=== PATIENT | male | born 1950 | race Native Hawaiian/Other Pacific Islander ===

== ENCOUNTER 2018-01-18 11:53 | Outpatient (CLI) | payer OTHER ==
[~2018-01-18 11:53] MED LIST: METO25TA4 PO; PRAVACHOL80 MG PO
== END 2018-01-18 21:59 | disposition home or self-care (01) ==
LOC: RAD 11:53
DX: Z12.89 Encounter for screening for malignant neoplasm of other sites (principal)

== ENCOUNTER 2018-01-24 09:02 | Outpatient (CLI) | payer OTHER | END 2018-01-24 18:17 | disposition home or self-care (01) | LOC: US 09:02 | DX: R59.0 Localized enlarged lymph nodes (principal) ==

== ENCOUNTER 2018-03-28 08:19 | Emergency (ER) | payer OTHER ==
[~2018-03-28] VITALS: Ht 180.3 cm; Wt 68.0 kg
[2018-03-28 08:20] VITALS: TEMP 98.1
[2018-03-28 09:05] LABS: PLATELET COUNT 245 K/uL (142-355)
[2018-03-28 09:06] LABS: POTASSIUM 3.6 mmol/L (3.6-5.2)
[2018-03-28 10:56] VITALS: BP 133/88
== END 2018-03-28 11:45 | disposition short-term general hospital (02) ==
LOC: ED 08:19
DX: J90 Pleural effusion, not elsewhere classified (principal); R06.09 Other forms of dyspnea
CPT/HCPCS: 36415; 80053; 85027; 94664; 99283

== ENCOUNTER 2018-03-28 11:44 | Outpatient (CLI) | payer OTHER | END 2018-03-28 12:16 | disposition short-term general hospital (02) | LOC: AMB 11:44 | DX: J90 Pleural effusion, not elsewhere classified (principal); R06.09 Other forms of dyspnea | CPT/HCPCS: A0425; A0427 ==